=== PATIENT | female | born 1935 | race African-American/Black ===

== ENCOUNTER 2018-03-29 16:14 | Inpatient (IN) | payer MEDICARE, MEDICAID ==
[~2018-03-29] VITALS: Ht 167.6 cm; Wt 94.4 kg
[~2018-03-29 16:14] MED LIST: AMLO10TA80 PO; CLOP75TA16 PO; DIAZ10TA4 PO; FERR-71 PO; HYDR-4135 PO; HYDR12.54 PO; LISI-604 PO; METF-815 PO; PRAN1 PO; RANI150T7 PO
[2018-03-29] MEDS ORDERED: METHYLPREDNISOLONE SOD SUCC 125 MG/2 ML VIAL IV STA (17:22)
[2018-03-29] MEDS ORDERED: IPRATROPIUM/ALBUTEROL 0.5-3(2.5)MG/3ML NEB HHN ONE (17:30)
[2018-03-29] MEDS ORDERED: FUROSEMIDE 40MG/4ML VIAL IV ONE (17:30)
[2018-03-29 18:21] LABS: BASOPHILS % 0.6 % (0.0-2.0); EOSINOPHILS % 2.1 % (0.0-5.0); HEMATOCRIT. 25.2 % (36.0-48.0); HEMOGLOBIN. 7.6 g/dL (12.0-16.0); LYMPHOCYTES % 16.3 % (20.0-50.0); MEAN CORPUSCULAR HEMOGLOBIN 22.4 pg (28.0-32.0); MEAN CORPUSCULAR VOLUME 73.9 fL (81.0-99.0); MEAN PLATELET VOLUME 9.2 fl (7.4-10.4); MONOCYTES % 9.7 % (2.0-8.0); NEUTROPHILS % 71.3 % (40.0-76.0); PLATELET 309 x1000/uL (130-400); RED BLOOD CELL COUNT 3.41 mill/uL (4.2-5.4); RED CELL DISTRIBUTION WIDTH 21.8 % (11.6-14.6)
[2018-03-29 18:25] LABS: CHLORIDE 101 mEq/L (98-107)
[2018-03-29 18:27] LABS: PROTHROMBIN TIME 10.2 sec (9.1-11.1)
[2018-03-29 20:57] VITALS: BP 179/77
[2018-03-29 21:44] VITALS: BP 179/77
[2018-03-29] MEDS ORDERED: DEXTROSE 50% WATER 50ML SYRINGE IV PRN (22:45)
[2018-03-29] MEDS ORDERED: CLONIDINE 0.1MG TABLET PO PRN (22:45)
[2018-03-29] MEDS ORDERED: IPRATROPIUM/ALBUTEROL 0.5-3(2.5)MG/3ML NEB HHN NR (23:15)
[2018-03-29] MEDS: DIPHENHYDRAMINE 12.5MG/5ML UDC PO PRN (23:47)
[2018-03-29] MEDS: ACETAMINOPHEN 325MG TABLET PO PRN (23:47)
[2018-03-30] VITALS (11 sets, daily range): BP systolic 121–179; BP diastolic 47–82
[2018-03-30] MEDS: IPRATROPIUM/ALBUTEROL 0.5-3(2.5)MG/3ML NEB HHN SCH ×5 (04:36→21:19)
[2018-03-30] MEDS: REPAGLINIDE 1MG TABLET PO SCH ×3 (06:35→17:52)
[2018-03-30] MEDS: BLOOD SUGAR DIAGNOSTIC STRIP TEST SCH ×4 (06:36→21:18)
[2018-03-30 06:46] LABS: HEMATOCRIT. 24.2 % (36.0-48.0); HEMOGLOBIN. 7.5 g/dL (12.0-16.0); MEAN CORPUSCULAR HEMOGLOBIN 22.6 pg (28.0-32.0); MEAN CORPUSCULAR VOLUME 73.6 fL (81.0-99.0); MEAN PLATELET VOLUME 9.2 fl (7.4-10.4); PLATELET 323 x1000/uL (130-400); RED BLOOD CELL COUNT 3.29 mill/uL (4.2-5.4); RED CELL DISTRIBUTION WIDTH 21.8 % (11.6-14.6)
[2018-03-30] MEDS ORDERED: INSULIN LISPRO 100 UNITS/ML SUBCUT SCH (07:15)
[2018-03-30] MEDS ORDERED: FUROSEMIDE 40MG/4ML VIAL IVP SCH (09:00)
[2018-03-30] MEDS ORDERED: ENOXAPARIN 30MG/0.3ML SYR SUBCUT SCH (09:00)
[2018-03-30] MEDS: LISINOPRIL 10MG TABLET PO SCH (09:59)
[2018-03-30] MEDS: DIAZEPAM 5 MG TABLET PO SCH ×2 (09:59→21:00)
[2018-03-30] MEDS: CLOPIDOGREL 75MG TABLET PO SCH (09:59)
[2018-03-30] MEDS: HYDRALAZINE HCL 50MG TABLET PO SCH ×2 (10:00→20:51)
[2018-03-30] MEDS: HYDROCHLOROTHIAZIDE 25MG TABLET PO SCH (10:00)
[2018-03-30] MEDS ORDERED: DEXTROSE 50% WATER 50ML SYRINGE IV PRN (10:00)
[2018-03-30] MEDS: AMLODIPINE 5MG TABLET PO SCH ×2 (10:01→20:51)
[2018-03-30] MEDS: POTASSIUM CHLORIDE 10MEQ TABLET SR PO SCH (10:01)
[2018-03-30] MEDS ORDERED: BLOOD SUGAR DIAGNOSTIC STRIP TEST SCH (11:45)
[2018-03-30 12:00] LABS: TOTAL IRON BINDING CAPACITY 225 ug/dL (250-450)
[2018-03-30 12:58] LABS: PLATELET ESTIMATE NORMAL
[2018-03-30] MEDS: PANTOPRAZOLE SODIUM 40 MG/VIAL IV SCH (13:18)
[2018-03-30] MEDS: DOCUSATE SODIUM 100MG CAPSULE PO SCH (13:18)
[2018-03-30] MEDS: FERROUS SULFATE 325MG TABLET PO SCH ×2 (13:18→17:52)
[2018-03-30] MEDS: INSULIN LISPRO 100 UNITS/ML SUBCUT SCH ×3 (13:20→21:15)
[2018-03-30] MEDS ORDERED: IPRATROPIUM/ALBUTEROL 0.5-3(2.5)MG/3ML NEB HHN PRN (15:45)
[2018-03-30] MEDS: SUCRALFATE 1 G/10 ML UDC PO SCH ×2 (17:51→20:51)
[2018-03-30] MEDS: POTASSIUM CHLORIDE 20MEQ TABLET SR PO SCH (17:52)
[2018-03-30] MEDS: FUROSEMIDE 40MG/4ML VIAL IVP SCH (17:52)
[2018-03-30] MEDS: ASCORBIC ACID 500 MG TABLET PO SCH (20:51)
[2018-03-30] MEDS: BUDESONIDE 0.5MG/2ML NEB HHN SCH (21:19)
[2018-03-31] VITALS: BP 147/68
[2018-03-31] MEDS: IPRATROPIUM/ALBUTEROL 0.5-3(2.5)MG/3ML NEB HHN SCH ×6 (00:42→21:45)
[2018-03-31] MEDS: DIPHENHYDRAMINE 12.5MG/5ML UDC PO PRN (03:58)
[2018-03-31 04:00] VITALS: BP 131/61
[2018-03-31] MEDS: BLOOD SUGAR DIAGNOSTIC STRIP TEST SCH ×4 (05:59→21:31)
[2018-03-31] MEDS: SUCRALFATE 1 G/10 ML UDC PO SCH ×4 (06:00→21:30)
[2018-03-31] MEDS: INSULIN LISPRO 100 UNITS/ML SUBCUT SCH ×4 (06:04→21:00)
[2018-03-31] MEDS: BUDESONIDE 0.5MG/2ML NEB HHN SCH ×2 (07:25→21:45)
[2018-03-31 07:38] LABS: BASOPHILS % 0.4 % (0.0-2.0); EOSINOPHILS % 1.6 % (0.0-5.0); HEMATOCRIT. 26.2 % (36.0-48.0); HEMOGLOBIN. 8.1 g/dL (12.0-16.0); LYMPHOCYTES % 11.4 % (20.0-50.0); MEAN CORPUSCULAR HEMOGLOBIN 23.2 pg (28.0-32.0); MEAN CORPUSCULAR VOLUME 75.1 fL (81.0-99.0); MEAN PLATELET VOLUME 9.5 fl (7.4-10.4); MONOCYTES % 9.3 % (2.0-8.0); NEUTROPHILS % 77.3 % (40.0-76.0); PLATELET 331 x1000/uL (130-400); RED BLOOD CELL COUNT 3.49 mill/uL (4.2-5.4); RED CELL DISTRIBUTION WIDTH 22.5 % (11.6-14.6)
[2018-03-31 07:47] LABS: CHLORIDE 101 mEq/L (98-107)
[2018-03-31] MEDS: HYDRALAZINE HCL 50MG TABLET PO SCH ×2 (08:38→21:29)
[2018-03-31] MEDS: AMLODIPINE 5MG TABLET PO SCH ×2 (08:39→21:30)
[2018-03-31] MEDS: LISINOPRIL 10MG TABLET PO SCH (09:00)
[2018-03-31] MEDS: DIAZEPAM 5 MG TABLET PO SCH ×2 (09:00→21:29)
[2018-03-31] MEDS: ASCORBIC ACID 500 MG TABLET PO SCH ×2 (09:15→21:29)
[2018-03-31] MEDS: FUROSEMIDE 40MG/4ML VIAL IVP SCH ×2 (09:16→16:46)
[2018-03-31] MEDS: DOCUSATE SODIUM 100MG CAPSULE PO SCH ×2 (09:16→16:46)
[2018-03-31] MEDS: POTASSIUM CHLORIDE 20MEQ TABLET SR PO SCH ×2 (09:16→16:49)
[2018-03-31] MEDS: FERROUS SULFATE 325MG TABLET PO SCH ×3 (09:16→16:46)
[2018-03-31] MEDS: POTASSIUM CHLORIDE 10MEQ TABLET SR PO SCH (09:16)
[2018-03-31] MEDS: CLOPIDOGREL 75MG TABLET PO SCH (09:16)
[2018-03-31] MEDS: ACETAMINOPHEN 325MG TABLET PO PRN (09:16)
[2018-03-31] MEDS: HYDROCHLOROTHIAZIDE 25MG TABLET PO SCH (09:16)
[2018-03-31] MEDS: PANTOPRAZOLE SODIUM 40 MG/VIAL IV SCH (09:17)
[2018-03-31] MEDS: REPAGLINIDE 1MG TABLET PO SCH ×3 (09:17→16:46)
[2018-03-31 12:00] VITALS: BP 129/66
[2018-03-31 17:00] LABS: HEMATOCRIT 26.5 % (36.0-48.0); HEMOGLOBIN 8.3 g/dL (12.0-16.0); MEAN CORPUSCULAR HEMOGLOBIN 23.7 pg (28.0-32.0); MEAN CORPUSCULAR VOLUME 75.2 fL (81.0-99.0); PLATELET 309 x1000/uL (130-400); RED BLOOD CELL COUNT 3.52 mill/uL (4.2-5.4); RED CELL DISTRIBUTION WIDTH 22.7 % (11.6-14.6)
[2018-03-31 20:00] VITALS: BP 150/63
[2018-04-01] VITALS (7 sets, daily range): BP systolic 110–168; BP diastolic 54–75
[2018-04-01] MEDS: IPRATROPIUM/ALBUTEROL 0.5-3(2.5)MG/3ML NEB HHN SCH ×6 (00:15→21:05)
[2018-04-01] MEDS: SUCRALFATE 1 G/10 ML UDC PO SCH ×4 (06:07→20:43)
[2018-04-01] MEDS: BLOOD SUGAR DIAGNOSTIC STRIP TEST SCH ×4 (07:01→20:43)
[2018-04-01] MEDS: INSULIN LISPRO 100 UNITS/ML SUBCUT SCH ×4 (07:15→20:50)
[2018-04-01 07:40] LABS: BASOPHILS % 0.8 % (0.0-2.0); EOSINOPHILS % 2.6 % (0.0-5.0); HEMOGLOBIN. 8.9 g/dL (12.0-16.0); LYMPHOCYTES % 12.7 % (20.0-50.0); MEAN CORPUSCULAR HEMOGLOBIN 23.5 pg (28.0-32.0); MEAN CORPUSCULAR VOLUME 74.3 fL (81.0-99.0); MEAN PLATELET VOLUME 9.5 fl (7.4-10.4); MONOCYTES % 10.4 % (2.0-8.0); NEUTROPHILS % 73.5 % (40.0-76.0); PLATELET 372 x1000/uL (130-400); RED BLOOD CELL COUNT 3.77 mill/uL (4.2-5.4); RED CELL DISTRIBUTION WIDTH 23.1 % (11.6-14.6)
[2018-04-01 07:57] LABS: CHLORIDE 96 mEq/L (98-107)
[2018-04-01] MEDS: BUDESONIDE 0.5MG/2ML NEB HHN SCH ×2 (08:46→21:05)
[2018-04-01] MEDS: HYDRALAZINE HCL 50MG TABLET PO SCH ×2 (08:47→20:38)
[2018-04-01] MEDS: FUROSEMIDE 40MG/4ML VIAL IVP SCH ×2 (08:47→16:31)
[2018-04-01] MEDS: PANTOPRAZOLE SODIUM 40 MG/VIAL IV SCH (08:47)
[2018-04-01] MEDS: LISINOPRIL 10MG TABLET PO SCH (08:48)
[2018-04-01] MEDS: ASCORBIC ACID 500 MG TABLET PO SCH ×2 (08:48→20:42)
[2018-04-01] MEDS: FERROUS SULFATE 325MG TABLET PO SCH ×3 (08:48→16:38)
[2018-04-01] MEDS: REPAGLINIDE 1MG TABLET PO SCH ×3 (08:48→16:30)
[2018-04-01] MEDS: ASPIRIN 81MG TABLET PO SCH (08:48)
[2018-04-01] MEDS: CLOPIDOGREL 75MG TABLET PO SCH ×3 (08:48→16:31)
[2018-04-01] MEDS: POTASSIUM CHLORIDE 20MEQ TABLET SR PO SCH ×2 (08:49→16:30)
[2018-04-01] MEDS: POTASSIUM CHLORIDE 10MEQ TABLET SR PO SCH (08:49)
[2018-04-01] MEDS: DIAZEPAM 5 MG TABLET PO SCH ×4 (08:49→20:43)
[2018-04-01] MEDS: DOCUSATE SODIUM 100MG CAPSULE PO SCH ×3 (08:49→16:49)
[2018-04-01] MEDS: AMLODIPINE 5MG TABLET PO SCH ×2 (08:50→20:42)
[2018-04-01] MEDS: HYDROCHLOROTHIAZIDE 25MG TABLET PO SCH (08:50)
[2018-04-01] MEDS: ACETAMINOPHEN 325MG TABLET PO PRN (17:26)
[2018-04-02] VITALS: BP 140/63
[2018-04-02] MEDS: IPRATROPIUM/ALBUTEROL 0.5-3(2.5)MG/3ML NEB HHN SCH ×5 (00:25→21:07)
[2018-04-02 04:00] VITALS: BP 133/52
[2018-04-02] MEDS: BLOOD SUGAR DIAGNOSTIC STRIP TEST SCH ×4 (06:16→21:52)
[2018-04-02] MEDS: SUCRALFATE 1 G/10 ML UDC PO SCH ×4 (06:19→21:52)
[2018-04-02] MEDS: INSULIN LISPRO 100 UNITS/ML SUBCUT SCH ×4 (06:19→21:55)
[2018-04-02] MEDS: FERROUS SULFATE 325MG TABLET PO SCH ×3 (06:19→18:15)
[2018-04-02] MEDS: REPAGLINIDE 1MG TABLET PO SCH ×3 (06:19→18:14)
[2018-04-02] MEDS: BUDESONIDE 0.5MG/2ML NEB HHN SCH (07:33)
[2018-04-02 08:00] VITALS: BP 188/57
[2018-04-02] MEDS: DIAZEPAM 5 MG TABLET PO SCH ×2 (09:00→21:00)
[2018-04-02] MEDS: PANTOPRAZOLE SODIUM 40 MG/VIAL IV SCH (09:21)
[2018-04-02] MEDS: FUROSEMIDE 40MG/4ML VIAL IVP SCH (09:21)
[2018-04-02] MEDS: LISINOPRIL 10MG TABLET PO SCH (09:22)
[2018-04-02] MEDS: POTASSIUM CHLORIDE 20MEQ TABLET SR PO SCH ×2 (09:22→18:24)
[2018-04-02] MEDS: DOCUSATE SODIUM 100MG CAPSULE PO SCH ×2 (09:23→18:15)
[2018-04-02] MEDS: ASCORBIC ACID 500 MG TABLET PO SCH ×2 (09:23→21:51)
[2018-04-02] MEDS: CLOPIDOGREL 75MG TABLET PO SCH (09:24)
[2018-04-02] MEDS: ASPIRIN 81MG TABLET PO SCH (09:24)
[2018-04-02] MEDS: HYDRALAZINE HCL 50MG TABLET PO SCH ×2 (09:24→22:03)
[2018-04-02] MEDS: AMLODIPINE 5MG TABLET PO SCH ×2 (09:24→21:51)
[2018-04-02] MEDS: HYDROCHLOROTHIAZIDE 25MG TABLET PO SCH (09:24)
[2018-04-02 12:00] VITALS: BP 139/54
[2018-04-02 12:53] LABS: BASOPHILS % 0.7 % (0.0-2.0); EOSINOPHILS % 3.5 % (0.0-5.0); HEMATOCRIT. 31.1 % (36.0-48.0); HEMOGLOBIN. 9.6 g/dL (12.0-16.0); LYMPHOCYTES % 9.9 % (20.0-50.0); MEAN CORPUSCULAR VOLUME 74.7 fL (81.0-99.0); MEAN PLATELET VOLUME 8.5 fl (7.4-10.4); MONOCYTES % 8.6 % (2.0-8.0); NEUTROPHILS % 77.3 % (40.0-76.0); PLATELET 382 x1000/uL (130-400); RED BLOOD CELL COUNT 4.17 mill/uL (4.2-5.4); RED CELL DISTRIBUTION WIDTH 23.7 % (11.6-14.6)
[2018-04-02 16:00] VITALS: BP 129/67
[2018-04-02] MEDS: FUROSEMIDE 40MG TABLET PO SCH (18:15)
[2018-04-02 20:00] VITALS: BP 140/56
[2018-04-03] VITALS: BP 137/62
[2018-04-03] MEDS: DIAZEPAM 5 MG TABLET PO SCH ×3 (00:07→21:25)
[2018-04-03 04:00] VITALS: BP 126/53
[2018-04-03] MEDS: IPRATROPIUM/ALBUTEROL 0.5-3(2.5)MG/3ML NEB HHN SCH ×6 (04:00→20:08)
[2018-04-03] MEDS: SUCRALFATE 1 G/10 ML UDC PO SCH ×4 (06:31→21:25)
[2018-04-03] MEDS: FUROSEMIDE 40MG TABLET PO SCH ×3 (06:32→21:27)
[2018-04-03] MEDS: ACETAMINOPHEN 325MG TABLET PO PRN ×2 (06:32→21:33)
[2018-04-03] MEDS: INSULIN LISPRO 100 UNITS/ML SUBCUT SCH ×4 (06:32→21:57)
[2018-04-03] MEDS: BLOOD SUGAR DIAGNOSTIC STRIP TEST SCH ×4 (06:32→21:50)
[2018-04-03 06:56] LABS: BASOPHILS % 0.8 % (0.0-2.0); EOSINOPHILS % 3.4 % (0.0-5.0); HEMATOCRIT. 30.4 % (36.0-48.0); HEMOGLOBIN. 9.4 g/dL (12.0-16.0); LYMPHOCYTES % 11.2 % (20.0-50.0); MEAN CORPUSCULAR HEMOGLOBIN 22.5 pg (28.0-32.0); MEAN CORPUSCULAR VOLUME 72.8 fL (81.0-99.0); MEAN PLATELET VOLUME 8.8 fl (7.4-10.4); MONOCYTES % 9.4 % (2.0-8.0); NEUTROPHILS % 75.2 % (40.0-76.0); PLATELET 391 x1000/uL (130-400); RED BLOOD CELL COUNT 4.17 mill/uL (4.2-5.4); RED CELL DISTRIBUTION WIDTH 23.9 % (11.6-14.6)
[2018-04-03 08:00] VITALS: BP 122/34
[2018-04-03] MEDS: REPAGLINIDE 1MG TABLET PO SCH ×4 (08:41→21:27)
[2018-04-03] MEDS: FERROUS SULFATE 325MG TABLET PO SCH ×4 (08:41→21:26)
[2018-04-03] MEDS: DOCUSATE SODIUM 100MG CAPSULE PO SCH ×2 (09:00→17:00)
[2018-04-03] MEDS: ASPIRIN 81MG TABLET PO SCH (10:26)
[2018-04-03] MEDS: POTASSIUM CHLORIDE 20MEQ TABLET SR PO SCH ×2 (10:27→17:51)
[2018-04-03] MEDS: HYDROCHLOROTHIAZIDE 25MG TABLET PO SCH (10:28)
[2018-04-03] MEDS: CLOPIDOGREL 75MG TABLET PO SCH (10:28)
[2018-04-03] MEDS: LISINOPRIL 10MG TABLET PO SCH (10:29)
[2018-04-03] MEDS: AMLODIPINE 5MG TABLET PO SCH ×2 (10:30→21:26)
[2018-04-03] MEDS: HYDRALAZINE HCL 50MG TABLET PO SCH ×2 (10:30→21:27)
[2018-04-03] MEDS: ASCORBIC ACID 500 MG TABLET PO SCH ×2 (10:31→21:27)
[2018-04-03] MEDS: PANTOPRAZOLE SODIUM 40 MG/VIAL IV SCH (10:32)
[2018-04-03 12:00] VITALS: BP 119/56
[2018-04-03 16:00] VITALS: BP 130/61
[2018-04-03 20:00] VITALS: BP 125/70
[2018-04-04] MEDS: IPRATROPIUM/ALBUTEROL 0.5-3(2.5)MG/3ML NEB HHN SCH ×4 (00:24→08:15)
[2018-04-04 04:00] VITALS: BP 136/80
[2018-04-04] MEDS: SUCRALFATE 1 G/10 ML UDC PO SCH (06:58)
[2018-04-04] MEDS: INSULIN LISPRO 100 UNITS/ML SUBCUT SCH (07:15)
[2018-04-04] MEDS: BLOOD SUGAR DIAGNOSTIC STRIP TEST SCH (07:21)
[2018-04-04 08:00] VITALS: BP 117/52
[2018-04-04] MEDS: DOCUSATE SODIUM 100MG CAPSULE PO SCH (09:00)
[2018-04-04] MEDS: DIAZEPAM 5 MG TABLET PO SCH (09:00)
[2018-04-04] MEDS: AMLODIPINE 5MG TABLET PO SCH (09:40)
[2018-04-04] MEDS: ASCORBIC ACID 500 MG TABLET PO SCH (09:40)
[2018-04-04] MEDS: CLOPIDOGREL 75MG TABLET PO SCH (09:40)
[2018-04-04] MEDS: ASPIRIN 81MG TABLET PO SCH (09:40)
[2018-04-04] MEDS: HYDROCHLOROTHIAZIDE 25MG TABLET PO SCH (09:41)
[2018-04-04] MEDS: HYDRALAZINE HCL 50MG TABLET PO SCH (09:41)
[2018-04-04] MEDS: ACETAMINOPHEN 325MG TABLET PO PRN (09:41)
[2018-04-04] MEDS: POTASSIUM CHLORIDE 20MEQ TABLET SR PO SCH (09:42)
[2018-04-04] MEDS: LISINOPRIL 10MG TABLET PO SCH (09:42)
[2018-04-04] MEDS: PANTOPRAZOLE SODIUM 40 MG/VIAL IV SCH (09:42)
[2018-04-04 12:04] VITALS: BP 117/52
== END 2018-04-04 12:27 | disposition home or self-care (01) | DRG 280 ==
LOC: ER 16:14 → 5WST 18:22 → EDBEDREQTM 18:29 → EDBEDREQ 18:29 → ENRESERV 19:42 → 5WST 04-02 11:20
PROVIDERS: ADMIT Specialist; ATTEND Specialist
PROC: 30233N1 Transfusion of Nonautologous Red Blood Cells into Peripheral Vein, Percutaneous Approach (ICD-10-PCS; principal; 2018-03-30)
DX: I21.4 Non-ST elevation (NSTEMI) myocardial infarction (principal); J96.00 Acute respiratory failure, unspecified whether with hypoxia or hypercapnia; I45.2 Bifascicular block; N39.0 Urinary tract infection, site not specified; K29.60 Other gastritis without bleeding; K57.90 Diverticulosis of intestine, part unspecified, without perforation or abscess without bleeding; D50.9 Iron deficiency anemia, unspecified; E11.51 Type 2 diabetes mellitus with diabetic peripheral angiopathy without gangrene; E66.9 Obesity, unspecified; E78.00 Pure hypercholesterolemia, unspecified; M19.90 Unspecified osteoarthritis, unspecified site; G47.33 Obstructive sleep apnea (adult) (pediatric); K59.00 Constipation, unspecified; I50.9 Heart failure, unspecified; E78.5 Hyperlipidemia, unspecified; I11.0 Hypertensive heart disease with heart failure; I25.10 Atherosclerotic heart disease of native coronary artery without angina pectoris; I27.20 Pulmonary hypertension, unspecified; J44.9 Chronic obstructive pulmonary disease, unspecified; Z95.5 Presence of coronary angioplasty implant and graft; Z86.711 Personal history of pulmonary embolism; Z86.73 Personal history of transient ischemic attack (TIA), and cerebral infarction without residual deficits; Z87.891 Personal history of nicotine dependence; Z99.81 Dependence on supplemental oxygen; Z79.899 Other long term (current) drug therapy; Z79.82 Long term (current) use of aspirin; Z68.33 Body mass index [BMI] 33.0-33.9, adult; Z88.0 Allergy status to penicillin; Z88.8 Allergy status to other drugs, medicaments and biological substances
CPT/HCPCS: 36415; 71045; 71046; 80048; 80053; 82270; 82728; 82962; 83540; 83550; 83735; 83880; 84443; 84484; 85025; 85027; 85610; 85730; 86850; 86900; 86920; 93005; 93306; 94640; 97116; 97162; 97166; 99285; C9113; J1650; J1815; J1940; J2930; J7050; J7620; J7626; P9016; Q0163